=== PATIENT | male | born 1950 | race Caucasian/White ===

== ENCOUNTER 2017-06-30 05:42 | Emergency (ER) | payer OTHER ==
[~2017-06-30] VITALS: Ht 175.3 cm; Wt 88.0 kg
[~2017-06-30 05:42] MED LIST: ASPI81 PO; NAPR550 PO; NIAC500T34 PO; PARO37.5 PO; TAB-TAB PO
[2017-06-30 05:51] VITALS: BP 157/80; PULSE 64; RESP 16; TEMP 97.7; O2SAT 99
[2017-06-30] MEDS ORDERED: HYDR25TA5 PO (06:00)
--- NOTE | 2017-06-30 06:32 | RADRPT ---
EXAM DATE/TIME: 06/30/2017 06:15 [place] COMPARISON: No previous studies available for comparison. INDICATIONS : Right foot, first through fifth metatarsal pain. MEDICAL HISTORY : None. SURGICAL HISTORY : None. ENCOUNTER: Initial ACUITY: 1 day PAIN SCORE: 8/10 LOCATION: Right foot FINDINGS: Three view examination of the right foot demonstrates no soft tissue swelling, dislocation, or fractu re. The tarsal bones appear intact. The interphalangeal and metatarsophalangeal joints are intact. The calcaneus is intact. Bony mineralization is normal. CONCLUSION: No evidence of recent bony injury. Holden Montano MD on June 30, 2017 at 6:31 Board Certified Radiologist. This report was verified electronically.
--- NOTE | 2017-06-30 06:34 | PD ---
HPI . Injury Chief Complaint: Injury Time Seen by Provider: 05:59 Travel History International Travel<30 days: No Contact w/Intl Traveler<30days: No Traveled to known affect area: No History of Present Illness HPI 67-year-old male status post placing his foot down hard on his car brake, felt popping sensation, has had pain tenderness difficulty ambulating since. This happened yesterday. Patient denies any focal weakness numbness or tingling. This is an isolated injury complaint [facility] Past Medical History Narrative Medical Past medical history Depression: Yes Diminished Hearing: No Diverticulitis: Yes Hypertension: Yes Tetanus Vaccination: Unknown Influenza Vaccination: No Past Surgical History Appendectomy: Yes Social History Alcohol Use: Yes (SOCIAL) Tobacco Use: Yes (CIGARS) Substance Use: No Allergies-Medications (Allergen,Severity, Reaction): Coded Allergies: No Known Allergies (Verified Adverse Reaction, Unknown, 06/30/17) Reported Meds & Prescriptions Reported Meds & Active Scripts Active Reported Hydrochlorothiazide 25 Mg Tab 25 Mg PO DAILY Narrative Medication Allergies and medications reviewed Review of Systems Except as stated in HPI: all other systems reviewed are Neg General / Constitutional: No: Fever Eyes: No: Visual changes HENT: No: Headaches Cardiovascular: No: Chest Pain or Discomfort Respiratory: No: Shortness of Breath Gastrointestinal: No: Abdominal Pain Genitourinary: No: Dysuria Musculoskeletal: Positive: Arthralgias, Pain, No: Myalgias, Limited ROM Skin: No Rash Neurologic: No: Weakness Psychiatric: No: Depression Endocrine: No: Polydipsia Hematologic/Lymphatic: No: Easy Bruising Physical Exam Narrative GENERAL: Awake and alert 3 no acute distress SKIN: Warm and dry. HEAD: Atraumatic. Normocephalic. EYES: Pupils equal and round. No scleral icterus. No injection or drainage. ENT: No nasal bleeding or discharge. Mucous membranes pink and moist. NECK: Trachea midline. No JVD. CARDIOVASCULAR: Regular rate and rhythm. RESPIRATORY: No accessory muscle use. Clear to auscultation. Breath sounds equal bilaterally. GASTROINTESTINAL: Abdomen soft, non-tender, nondistended. Hepatic and splenic margins not palpable. MUSCULOSKELETAL: Extremities without clubbing, cyanosis, or edema. No obvious deformities. Tender to right foot plantar aspect of right great toe/distal metatarsal NEUROLOGICAL: Awake and alert. No obvious deficit PSYCHIATRIC: Appropriate mood and affect; insight and judgment normal. Data Data Last Documented VS Vital Signs Date Time Temp Pulse Resp B/P (MAP) Pulse Ox O2 Delivery O2 Flow Rate FiO2 06/30/17 06:01 64 99 Room Air 06/30/17 05:51 97.7 16 157/80 (105) Orders Orders Foot, Complete ([id number]) (06/30/17 ) Support Splint (06/30/17 06:22) MDM Medical Decision Making Medical Screen Exam Complete: Yes Emergency Medical Condition: Yes Medical Record Reviewed: Yes Differential Diagnosis Right foot sprain right foot fracture Narrative Course X-ray reveals possible fractured sesamoid bone on left metatarsal head plantar surface. Procedure note: Splinting right foot plantar fiberglass by Fela, supervised by me. Patient has increased comfort with same, neurovascular intact afterwards. Crutches with instruction Diagnosis Primary Impression: Right foot sprain Qualified Codes: S93.601A - Unspecified sprain of right foot, initial encounter Referrals: Marie Dutton DPTaiwo Patient Instructions: Foot Sprain (ED), General Instructions Additional Instructions: Wear splint. Ice, elevate, rest. Use crutches for assistance with ambulation. Follow-up with podiatry/orthopedics in 1 week if not significantly improved. Return if worsening Disposition: 01 DISCHARGE HOME Condition: Stable Dax Stern MD Jun 30, 2017 06:34
== END 2017-06-30 07:04 | disposition home or self-care (01) ==
LOC: PHED 05:42
DX: S93.601A Unspecified sprain of right foot, initial encounter (principal); I10 Essential (primary) hypertension; F32.9 Major depressive disorder, single episode, unspecified; K57.92 Diverticulitis of intestine, part unspecified, without perforation or abscess without bleeding; Z72.0 Tobacco use; X50.9XXA Other and unspecified overexertion or strenuous movements or postures, initial encounter; Y93.89 Activity, other specified
CPT/HCPCS: 73630; 99283